=== PATIENT | male | born 1975 | race Caucasian/White ===

== ENCOUNTER 2019-04-11 09:05 | Emergency (ER) | payer OTHER ==
[~2019-04-11] VITALS: Ht 170.2 cm; Wt 95.3 kg
[~2019-04-11 09:05] MED LIST: ALLOPURINOL5 GM; BENAZEPRIL-HCT1 EA10; IBUPROFEN 800800 MG PO; NORCO 5-325 TA1 EACH PO; OTHER MISCELL; PHENERGAN 25 MG25 M1 PO
[2019-04-11] MEDS ORDERED: ZANAFLEX4 MG PO (09:16)
[2019-04-11] MEDS ORDERED: LIORESAL 10 MG10 MG PO (09:16)
[2019-04-11] MEDS ORDERED: NORVASC5 MG PO (09:17)
[2019-04-11 09:46] VITALS: BP 173/95
== END 2019-04-11 09:46 | disposition home or self-care (01) ==
LOC: M.ERS 09:05
DX: G56.01 Carpal tunnel syndrome, right upper limb (principal); I10 Essential (primary) hypertension; Z87.442 Personal history of urinary calculi; Z88.8 Allergy status to other drugs, medicaments and biological substances

== ENCOUNTER 2020-12-16 09:06 | Emergency (ER) | payer OTHER ==
[~2020-12-16] VITALS: Ht 167.6 cm; Wt 102.1 kg
[~2020-12-16 09:06] MED LIST changes: +LIORESAL 10 MG10 MG PO; +NORVASC5 MG PO; +ZANAFLEX4 MG PO
[2020-12-16] MEDS ORDERED: FLEXERIL PO (09:53)
[2020-12-16] MEDS ORDERED: HYDROCODON-ACE1 EAC7 PO (09:53)
[2020-12-16 10:45] VITALS: BP 130/86
== END 2020-12-16 10:46 | disposition home or self-care (01) ==
LOC: M.ERS 09:06
DX: S00.03XA Contusion of scalp, initial encounter (principal); M54.2 Cervicalgia; I10 Essential (primary) hypertension; Z87.442 Personal history of urinary calculi; Z88.8 Allergy status to other drugs, medicaments and biological substances; W18.39XA Other fall on same level, initial encounter; Y93.89 Activity, other specified; Y92.89 Other specified places as the place of occurrence of the external cause; Y99.0 Civilian activity done for income or pay